=== PATIENT | female | born 1955 | race Two or more races ===

== ENCOUNTER → 2023-10-23 06:32 | Day surgery (SDC) | payer OTHER, SELFPAY ==
[2023-10-23 08:16] LABS: Glucose - Point of Care 154 mg/dl (70-99)
== END ==
LOC: GI 06:32
PROVIDERS: ATTENDING PHYSICIAN Internal Medicine Gastroenterology
DX: K22.2 Esophageal obstruction (principal); K44.9 Diaphragmatic hernia without obstruction or gangrene; K31.89 Other diseases of stomach and duodenum; R13.10 Dysphagia, unspecified
CPT/HCPCS: 43249; 43239; 88305; 82962; 88342

== ENCOUNTER → 2023-11-29 08:18 | Outpatient (REF) | payer OTHER, SELFPAY | LOC: RAD 08:18 | PROVIDERS: ATTENDING PHYSICIAN Internal Medicine Gastroenterology; FAMILY PHYSICIAN Family Medicine | DX: R13.19 Other dysphagia (principal) | CPT/HCPCS: 74221 ==